=== PATIENT | female | born 1960 | race Caucasian/White ===

== ENCOUNTER 2018-04-19 15:30 | Inpatient (IN) | payer SELFPAY ==
[2018-04-19 16:08] LABS: #Basophils 0.1 thou/uL (0.0-0.2); #Eosinphils 0.1 thou/uL (0.0-0.7); #Lymphocytes 1.8 thou/uL (1.20-3.40); #Monocytes 0.7 thou/uL (0.11-0.59); #Neutrophils 10.2 thou/uL (1.40-6.50); %Basophils 0.8 % (0.0-1.0); %Eosinophils 0.9 % (0.0-10.0); %Lymphocytes 13.8 % (21.0-51.0); %Monocytes 5.2 % (0.0-10.0); %Neutrophils 79.3 % (42.0-75.0); Hemoglobin 14.1 g/dL (12.0-16.0); Mean Corpuscular Hemoglobin 29.6 pg (27.0-31.0); Mean Corpuscular Volume 92.4 fL (78.0-98.0); Mean Platelet Volume 6.6 fL (7.4-10.4); Platelet Count 332 thou/uL (130-400); Red Blood Cell (RBC) Count 4.77 mill/uL (4.20-5.40); White Blood Cell (WBC) Count 12.8 thou/uL (4.8-10.8)
--- NOTE | 2018-04-19 16:21 | RAD ---
PA AND LATERAL VIEWS CHEST: Date: 04/19/18 HISTORY: Cough. Hypoxia. FINDINGS: Comparison made with exam of 04/15/16. The heart size is normal. The lungs are well expanded without focal areas of consolidation, pneumotho races, or pleural effusions. No acute osseous abnormalities are seen. IMPRESSION: No radiographic evidence of acute cardiopulmonary process. POS: [facility]
[2018-04-19 16:27] LABS: ALT (SGPT) 21 U/L (8-55); AST (SGOT) 20 U/L (5-34); Albumin 3.9 g/dL (3.5-5.0); Alkaline Phosphatase 93 U/L (40-150); Anion Gap 14 mmol/L (10-20); BUN (Urea Nitrogen) 7 mg/dL (9.8-20.1); Bilirubin, Total 0.3 mg/dL (0.2-1.2); Calc. Creatinine Clearance 0 mL/min (70-130); Calcium 9.5 mg/dL (7.8-10.44); Carbon Dioxide 29 mmol/L (22-29); Chloride 103 mmol/L (98-107); Estimated GFR-MDRD Greater than 90; Glucose 110 mg/dL (70-105); Potassium 3.2 mmol/L (3.5-5.1); Protein, Total 6.9 g/dL (6.0-8.3); Sodium 143 mmol/L (136-145)
[2018-04-19] MEDS ORDERED: methylPREDNISolone Sod Succ/PF 125 MG/2 ML VIAL ONE (16:29)
[2018-04-19] MEDS ORDERED: Potassium Chloride 20 MEQ TAB ONE (17:28)
[2018-04-19] MEDS ORDERED: Levofloxacin 500 mg/D5W 100 ml Premix Bag ONE (17:28)
[2018-04-19] MEDS ORDERED: Ondansetron ODT 4 MG TAB PO PRN (18:58)
[2018-04-19] MEDS ORDERED: Acetaminophen 650 MG Suppository PR PRN (18:58)
[2018-04-19 19:35] VITALS: BMI 43.1
[2018-04-19] MEDS ORDERED: Phenergan/Codeine 10-6.25mg/5ml UDCUP ONE ×2 (20:52→21:12)
[2018-04-19] MEDS: Loratadine 10 MG TAB PO PRN (21:00)
[2018-04-19] MEDS: Pravastatin Sodium 20 MG TAB PO SCH (21:01)
[2018-04-19] MEDS: Lisinopril 10 MG TAB PO SCH (21:01)
[2018-04-19] MEDS: Metoprolol Tartrate 25 MG TAB PO SCH (21:01)
[2018-04-19] MEDS: Phenergan/Codeine 10-6.25mg/5ml UDCUP PO PRN (21:02)
[2018-04-19] MEDS: Acetaminophen 325 MG TAB PO PRN (22:38)
[2018-04-19] MEDS: Budesonide 0.5 MG/2 ML NEB INH SCH (22:47)
[2018-04-20] MEDS ORDERED: Phenergan/Codeine 10-6.25mg/5ml UDCUP ONE ×3 (05:34→20:52)
[2018-04-20] MEDS: Acetaminophen 325 MG TAB PO PRN (05:38)
[2018-04-20] MEDS: Phenergan/Codeine 10-6.25mg/5ml UDCUP PO PRN ×2 (05:39→21:00)
--- NOTE | 2018-04-20 07:37 | HP ---
PRIMARY CARE PHYSICIAN: Dr. Bagley in [facility]. CHIEF COMPLAINT: Shortness of breath, persistent cough. HISTORY OF PRESENT ILLNESS: Ms. Whitney is a very pleasant 57-year-old female with history of hypertension, CAD, status post stents, and dyslipidemia. She was initially reported to have an acute onset of upper respiratory symptoms including cough, cold, nasal congestion, and body aches about a week ago. She was seen by a PA in [facility] on 04/13/2018, where flu and Strep A were obtained and came back negative. She was then diagnosed with viral upper respiratory infection at that time. She was given Medrol Dosepak for treatment. Patient also uses bronchodilator at home taht she took from her previous prescription about a year ago for similar episode. She denies history of asthma nor COPD. She admits to chronic and current tobacco tobacco use. The patient reports symptoms have progressively worsened. Reports productive cough associated with more frequent shortness of breath and wheezing. She went to [facility] on 04/19/2018, secondary to worsening respiratory symptoms. On further evaluation in [facility], the patient was reported to have tight chest and expiratory wheezing. Her chest x-ray was unremarkable. Her O2 was remarkably low at 89% to 90%. Her for oxygen supplement increasing up to 94 %, 95% on 2 L per nasal cannula. She was found to have mild leukocytosis. Her Chest xray was negative. Flu swab was negative as well. EKG was unremarkable. Normal lactic acidosis. The patient was diagnosed with atypical pneumonia with hypoxia. Treatments received in the ER include DuoNeb x1, Solu-Medrol 60 mg IV x1, K-Dur 40 meq oral x1. IV antibiotic therapy was started with Levaquin 500 mg IV. The patient reports some improvement after she received the above treatments, however she remains to have some wheezing and O2 remains low,thus recommended inpatient management in [facility]. PAST MEDICAL HISTORY: 1. Hypertension. 2. Dyslipidemia. 3. CAD, status post stents x2, followed by Dr. Catalan. 4. Vitamin D deficiency. SURGICAL HISTORY: 1. Hysterectomy without BSO due to dysplasia. 2. Cholecystectomy. 3. Appendectomy. 4. Cataract removal bilaterally. FAMILY HISTORY: Mother is alive. Father is . Her oldest son has history of stents. SOCIAL HISTORY: The patient admits to smoking, about 40 pack-year smoker. Denies alcohol. Denies illicit drug use. ALLERGIES: TO PENICILLIN. MEDICATIONS: 1. Lisinopril 10 mg p.o. daily. 2. Aspirin 325 mg p.o. daily. 3. Simvastatin 20 mg p.o. at bedtime. 4. Metoprolol 25 mg p.o. b.i.d. REVIEW OF SYSTEMS: GENERAL: Reports feverish sensation, fatigue and general weakness. HEENT: Reports cold symptoms, otherwise no acute visual changes or hearing changes. RESPIRATORY: As per HPI. Denies pain with breathing, bloody sputum. CARDIAC: Denies chest pain/heaviness,dyspnea on exertion, paroxysmal nocturnal dyspnea. GASTROINTESTINAL: No nausea, vomiting, abdominal pain, diarrhea, constipation. GENITOURINARY: No dysuria, hematuria, frequency, urgency, incontinence. MUSCULOSKELETAL: Reports myalgia/body aches. Denies joint stiffness, effusion , or swelling. NEURO: No focal numbness, focal weakness, headaches. PSYCH: Denies anxiety, depressive symptoms, hallucinations. SKIN: Denies skin rashes, pruritus, or jaundice. PHYSICAL EXAMINATION: VITAL SIGNS: On admission, blood pressure 145/74, temperature 99.6, pulse 90, respiration 20, O2 saturation 94% on 2 L per nasal cannula. Weight 228 pounds and 3 ounces. Height 5 feet 1 inch. GENERAL: The patient is awake, alert, oriented, mildly ill-looking, nontoxic looking, comfortable in exam. Spontaneous speech. Built, obese. Not in acute distress. HEENT: Normocephalic, atraumatic. PERRL, Intact EOM. Boggy erythematous nasal mucosa. Congested turbinates. Erythematous hypopharynx. No tonsillar exudates. Moist oral mucosa. No oral lesions. NECK: Supple. No LAD. No thyromegaly. Flat JVD. CHEST: Normal excursion. Nonlabored breathing. LUNGS: Good air entry. Symmetrical. Clear breath sounds bilaterally. No rales, no wheezes, no crackles. No rhonchi. CARDIAC: RRR. Normal S1 and S2. No murmurs. ABDOMEN: Obese, soft. Normoactive bowel sounds. Nondistended, nontender. No rebound or guarding. Negative CVA tenderness bilaterally. EXTREMITIES: No edema. No cyanosis. SKIN: Intact, warm and moist. Good skin turgor. NEURO: nonfocal, DTRs 2plus, gait-steady. LABORATORY DATA: WBC 12.8, hemoglobin 14.1, hematocrit 44.1, platelets 332, neutrophils 79.3, lymphocytes 13.8. Sodium 143, potassium 3.2, chloride 103, carbon dioxide 29, anion gap 14, BUN 7, creatinine 0.67, estimated GFR 90, glucose 110, lactic acid 1.0. Liver function tests within normal limits. TEST: Chest x-ray, no radiographic evidence of acute cardiopulmonary process. ASSESSMENT: 1. Atypical pneumonia, community acquired versus acute bronchitis. 2. Hypoxia, O2 requiring. 3. Mild hypokalemia. 4. Hypertension. 5. Dyslipidemia. 6. Coronary artery disease, status post stent. 7. Obesity. PLAN: The patient is admitted to [facility] for inpatient management of atypical pneumonia versus acute bronchitis associated with hypoxia,02 requiring. We will continue empiric IV, manage antibiotic treatment. We will change to oral once appropriate. We will continue on bronchodilator. The patient is currently responsive to one dose of IV steroid. She already completed oral steroid a week ago. Will start on Pulmicort 0.5 mg inhale b.i.d. Repeat labs in the morning. KCl oral supplement, if potassium level remains low/medically indicated. DVT prophylaxis with Lovenox. Plan is to wean off from O2 once tolerated and change IV antibiotic to oral, if the patient remains afebrile after 24 hours. Possible discharge. CODE STATUS: Full code. Job ID: [id number] MTDD
[2018-04-20] MEDS: Metoprolol Tartrate 25 MG TAB PO SCH ×2 (08:58→20:46)
[2018-04-20] MEDS: Enoxaparin Sodium 40 MG/0.4 ML SYRINGE SC SCH (08:58)
[2018-04-20] MEDS: Aspirin 325 MG TAB PO SCH (08:59)
[2018-04-20] MEDS: Loratadine 10 MG TAB PO PRN (08:59)
[2018-04-20] MEDS: Budesonide 0.5 MG/2 ML NEB INH SCH ×2 (09:05→21:01)
[2018-04-20] MEDS ORDERED: Doxycycline Hyclate 100 MG TAB PO SCH (11:00)
[2018-04-20] MEDS ORDERED: Doxycycline 100 MG CAP PO SCH (11:45)
[2018-04-20] MEDS: Doxycycline 100 MG CAP PO SCH (20:44)
[2018-04-20] MEDS: Pravastatin Sodium 20 MG TAB PO SCH (20:46)
[2018-04-20] MEDS: Lisinopril 10 MG TAB PO SCH (20:46)
[2018-04-21 06:58] VITALS: BP 133/72; TEMP 98.7
[2018-04-21] MEDS: Metoprolol Tartrate 25 MG TAB PO SCH (08:46)
[2018-04-21] MEDS: Aspirin 325 MG TAB PO SCH (08:46)
[2018-04-21] MEDS: Doxycycline 100 MG CAP PO SCH (08:46)
[2018-04-21] MEDS: Budesonide 0.5 MG/2 ML NEB INH SCH (08:50)
[2018-04-21] MEDS: Enoxaparin Sodium 40 MG/0.4 ML SYRINGE SC SCH (08:50)
[2018-04-21 09:24] LABS: Anion Gap 15 mmol/L (10-20); BUN (Urea Nitrogen) 9 mg/dL (9.8-20.1); Calc. Creatinine Clearance 143 mL/min (70-130); Calcium 9.1 mg/dL (7.8-10.44); Carbon Dioxide 28 mmol/L (22-29); Chloride 105 mmol/L (98-107); Estimated GFR-MDRD 84; Glucose 123 mg/dL (70-105); Potassium 4.1 mmol/L (3.5-5.1); Sodium 144 mmol/L (136-145)
[2018-04-21] MEDS: Loratadine 10 MG TAB PO PRN (09:32)
[2018-04-21] MEDS: Acetaminophen 325 MG TAB PO PRN (09:32)
[2018-04-21] MEDS ORDERED: predniSONE 20 MG TAB PO SCH (12:00)
--- NOTE | 2018-04-22 09:51 | DIS ---
DATE OF ADMISSION: 04/19/2018 DATE OF DISCHARGE: 04/21/2018 DISCHARGING PHYSICIAN: Dr. Mcallister. PRIMARY CARE PHYSICIAN: Dr. Bagley. DISCHARGE DISPOSITION: Back to home. FINAL DIAGNOSES: 1. Acute bronchitis, much improved. 2. Hypoxia, resolved. 3. Hypokalemia, resolved. 4. Hypertension. 5. Dyslipidemia. 6. Coronary artery disease, status post stents x2. DISCHARGE MEDICATIONS: 1. Doxycycline 100 mg b.i.d. x7 days. 2. Prednisone 20 mg tablets, three tablets x3 days, two tablets x3 days, one tablet x3 days, half a tablet x3 days to complete a total of 12 days and a total of tablets. 3. Pulmicort inhaler b.i.d. 4. Lisinopril 10 at bedtime. 5. Metoprolol 25 b.i.d. 6. Simvastatin 20 mg daily. DISCHARGE INSTRUCTIONS: Follow up with your primary care physician within 2 to 4 days, complete medications as prescribed, follow up with inspector outside production as an outpatient. BRIEF HOSPITAL COURSE: Ms. Devonte Shaw is a 57-year-old female, who was admitted to [facility] in [place] on the 19 of April. The patient had presented to the emergency room due to worsening shortness of breath and wheezing. The patient states she does have a history of hypertension and coronary artery disease, status post stents, she said last time she saw a inspector outside production was 5 years ago; dyslipidemia. The patient denies any COPD or asthma. She states on the , she presented to her primary care in [place], and flu and strep came back negative, and she was diagnosed with a viral upper respiratory syndrome and was given a steroid pack for treatment. The patient states she uses a bronchodilator at home that she took from a previous prescription about a year ago for a similar episode. She states the shortness of breath progressively worsened and she presented to the ER in [place]. In the ER, oxygen was low at 89 to 90, and with 2 L of nasal cannula, it went up to 94%. The patient was found to have mild leukocytosis. A chest x-ray was negative. Flu was negative as well. EKG was unremarkable. The patient in the ER received one IV Levaquin, Solu-Medrol 60, K-Dur, and DuoNeb x1. The patient was subsequently admitted for continuation of care. She was changed to oral doxycycline p.o. Levaquin and she was put on Pulmicort. The patient progressively improved and we were able to taper her off O2 nasal cannula. Off oxygen nasal cannula, the patient was saturating at 94% to 96%. The patient was able to ambulate in the hallway and O2 saturations remained at 94%. The patient denied any shortness of breath, chest pain, or palpitation. Hypokalemia has resolved after one dose, and on day of discharge, potassium was 4.1. The patient was subsequently discharged back to home. She was advised to follow up with her primary care physician. The patient was discharged on doxycycline for 7 days and also prednisone taper for a total of 12 days. She was told to follow up with inspector outside production as she continues to have occasional shortness of breath and she does have a history of coronary artery disease with stents. The patient is a full code. Vital signs upon discharge; temperature 98.7, pulse 92, O2 saturations 96% on room air, blood pressure 133/72, and respirations 18. Job ID: [id number]
[2018-04-24] MEDS ORDERED: predniSONE 20 MG TAB PO SCH (12:00)
[2018-04-27] MEDS ORDERED: predniSONE 20 MG TAB PO SCH (12:00)
[2018-04-30] MEDS ORDERED: predniSONE 20 MG TAB PO SCH (12:00)
== END 2018-04-21 12:55 | disposition home or self-care (01) | DRG 202 ==
LOC: MADERS 15:30 → MADMS 17:46
PROVIDERS: ADMIT Family Medicine; ATTEND Family Medicine
DX: J20.9 Acute bronchitis, unspecified (principal); Z68.41 Body mass index [BMI] 40.0-44.9, adult; I10 Essential (primary) hypertension; I25.10 Atherosclerotic heart disease of native coronary artery without angina pectoris; E78.5 Hyperlipidemia, unspecified; E55.9 Vitamin D deficiency, unspecified; F17.210 Nicotine dependence, cigarettes, uncomplicated; R09.02 Hypoxemia; E66.9 Obesity, unspecified; E87.6 Hypokalemia; Z98.61 Coronary angioplasty status; Z90.710 Acquired absence of both cervix and uterus; Z90.722 Acquired absence of ovaries, bilateral; Z90.49 Acquired absence of other specified parts of digestive tract; Z98.41 Cataract extraction status, right eye; Z98.42 Cataract extraction status, left eye; Z88.0 Allergy status to penicillin; Z79.82 Long term (current) use of aspirin; Z79.899 Other long term (current) drug therapy
CPT/HCPCS: 36415; 71046; 80048; 80053; 83605; 85025; 87040; 87804; 93005; 94640; 94760; 96365; 96375; J1650; J1956; J2930; J7620; J7626

== ENCOUNTER 2020-02-19 17:01 | Emergency (ER) | payer OTHER ==
[~2020-02-19 17:01] MED LIST: Iopamidol 370 76% 125 ML VIAL FS ONE; Sodium Chloride 0.9% 100 ML BAG ONE
--- NOTE | 2020-02-19 18:17 | RAD ---
Chest AP view INDICATION: Cough and shortness of breath COMPARISON: January 17, 2020 FINDINGS: Lungs: The lungs are clear Cardiac silhouette: Heart size is upper limits of normal. Pulmonary vasculature: Normal Pleural spaces: No pleural effusion or pneumothorax is demonstrated. Upper abdomen: No abnormality seen. Osseous structures: No acute osseous abnormality. Additional findings: None. IMPRESSION: No acute cardiopulmonary abnormality.
[2020-02-19] MEDS ORDERED: Albuterol 200 PUFF (6.7GM INHALER) ONE (18:21)
[2020-02-19 18:25] LABS: #Eosinphils 0.1 thou/uL (0.0-0.7); #Lymphocytes 1.7 thou/uL (1.20-3.40); #Monocytes 0.5 thou/uL (0.11-0.59); #Neutrophils 6.5 thou/uL (1.40-6.50); %Basophils 0.5 % (0.0-1.0); %Eosinophils 1.2 % (0.0-10.0); %Lymphocytes 18.8 % (21.0-51.0); %Monocytes 5.5 % (0.0-10.0); Hemoglobin 14.2 g/dL (12.0-16.0); Mean Corpuscular Hemoglobin 29.6 pg (27.0-31.0); Mean Corpuscular Volume 92.4 fL (78.0-98.0); Mean Platelet Volume 6.7 fL (7.4-10.4); Platelet Count 292 thou/uL (130-400); RBC Distribution Width 12.6 % (11.5-14.5); White Blood Cell (WBC) Count 8.8 thou/uL (4.8-10.8)
[2020-02-19] MEDS ORDERED: methylPREDNISolone Sod Succ/PF 125 MG/2 ML VIAL ONE (18:34)
[2020-02-19 18:39] LABS: ALT (SGPT) 20 U/L (8-55); AST (SGOT) 17 U/L (5-34); Albumin 4.2 g/dL (3.5-5.0); Alkaline Phosphatase 70 U/L (40-110); Anion Gap 17 mmol/L (10-20); BUN (Urea Nitrogen) 7 mg/dL (9.8-20.1); Bilirubin, Total 0.2 mg/dL (0.2-1.2); Calc. Creatinine Clearance 0 mL/min (70-130); Calcium 9.4 mg/dL (7.8-10.44); Carbon Dioxide 26 mmol/L (22-29); Chloride 102 mmol/L (98-107); Globulin 3.1 g/dL (2.4-3.5); Glucose 101 mg/dL (70-105); Potassium 3.8 mmol/L (3.5-5.1); Protein, Total 7.3 g/dL (6.0-8.3); Sodium 141 mmol/L (136-145)
[2020-02-19] MEDS ORDERED: Sodium Chloride 0.9% 1,000 ML ONE (18:58)
--- NOTE | 2020-02-19 20:45 | CT ---
CTA OF THE THORAX UTILIZING IV CONTRAST, PE PROTOCOL AND 3D REFORMATTED IMAGIN02/19/20 INDICATIONS: 59-yaer-old female with history of dyspnea and elevated D-dimer. COMPARISON: Prior exam dated 06/11/18. FINDINGS: No definite central or segmental pulmonary embolus is evident within the limitations of the exam. Res piratory motion artifact slightly limits evaluation of the segmental pulmonary arterial branches. There are areas of nonspecific subsegmental volume loss in the right middle lobe. No air space consol idation or pleural effusion is evident. No enlarged lymph nodes are evident. There is diffuse fatty liver. There is a 5 cm left hepatic lobe cyst. There is stable 1.4 cm right ad renal adenoma. Gallbladder is surgically absent. There are scattered degenerative and osteoarthritic change. No definite acute osseous abnormality is evident. IMPRESSION: 1. No definite central pulmonary embolus demonstrated. Limitations of the exam as above. 2. Areas of subsegmental volume loss in the lateral right middle lobe. 3. Fatty liver. 4. Left hepatic lobe cyst. 5. Right adrenal adenoma. POS: [facility]
[2020-02-19] MEDS ORDERED: cefTRIAXone\\ROCEPHIN 1 GM VIAL ONE ×2 (21:04→21:06)
[2020-02-19] MEDS ORDERED: Albuterol Sulfate 2.5 mg/0.5 ml Neb ONE (21:04)
[2020-02-19] MEDS ORDERED: Sodium Chloride 0.9% 100 ML ONE (21:04)
[2020-02-19] MEDS ORDERED: Sodium Chloride 0.9% 250 ML 250 ML ONE (21:18)
[2020-02-19] MEDS ORDERED: Azithromycin 500 MG VIAL ONE (21:18)
== END 2020-02-19 21:39 | disposition short-term general hospital (02) ==
LOC: MADERS 17:01
DX: J44.1 Chronic obstructive pulmonary disease with (acute) exacerbation (principal); I25.10 Atherosclerotic heart disease of native coronary artery without angina pectoris; E78.5 Hyperlipidemia, unspecified; I10 Essential (primary) hypertension; J44.9 Chronic obstructive pulmonary disease, unspecified; F17.210 Nicotine dependence, cigarettes, uncomplicated; Z86.711 Personal history of pulmonary embolism; Z79.01 Long term (current) use of anticoagulants; Z79.899 Other long term (current) drug therapy
CPT/HCPCS: 71046; 71275; 80053; 83605; 83880; 84484; 85025; 85379; 93005; 94640; 94760; 96374; 96375; J0456; J0696; J2930; J3490; J7050; J7611; J7620; Q9967